=== PATIENT | female | born 1945 | race Two or more races ===

== ENCOUNTER 2017-03-10 19:16 | Emergency (ER) | payer MEDICARE, OTHER ==
[~2017-03-10] VITALS: Ht 157.5 cm; Wt 72.6 kg
[2017-03-10] MEDS ORDERED: Methocarbamol 750mg tab ORAL ONE (20:15)
[2017-03-10 21:46] VITALS: BP 145/72
[2017-03-10] MEDS ORDERED: ROBAXIN-750750 MG PO (21:48)
[2017-03-10] MEDS ORDERED: IBUPROFEN600 MG ORAL (21:48)
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
--- NOTE | 2017-03-11 11:57 | Diagnostic Imaging Report ---
Indication: PAIN Comparison: None Findings: Multiple views of the right ribs show no evidence of acute fractures. Bony mineralization is normal. No bony destructive lesions are identified. Visualized portions of the right lung is clear. Soft tissues are unremarkable. There is no evidence of pneumothorax. Impression: Negative right rib series
== END 2017-03-10 22:07 | disposition home or self-care (01) ==
LOC: EDBD 19:16 → EMR 20:00
DX: S20.212A Contusion of left front wall of thorax, initial encounter (principal); V43.62XA Car passenger injured in collision with other type car in traffic accident, initial encounter; Y92.410 Unspecified street and highway as the place of occurrence of the external cause; I10 Essential (primary) hypertension; E11.9 Type 2 diabetes mellitus without complications
CPT/HCPCS: 99284